=== PATIENT | female | born 2000 | race Caucasian/White ===

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

== ENCOUNTER 2020-01-21 06:09 | Emergency (ER) | payer OTHER, SELFPAY ==
[2020-01-21 06:10] VITALS: BP 90/63; PULSE 150; RESP 20; TEMP 38.8; O2SAT 97; BMI 51.0
[2020-01-21 06:15] VITALS: BP 90/63; PULSE 150; RESP 20; TEMP 38.8; O2SAT 97
--- NOTE | 2020-01-21 06:23 | RAD_ITS ---
STUDY: X-RAY CHEST REASON FOR EXAM: Female, 19 years old. SOB TECHNIQUE: PA and lateral views of the chest. COMPARISON: None. FINDINGS: Small ill-defined density in the posterior lung base overlapping the T10 vertebra on the lateral view is not clearly localized on the frontal image, it may simply be summation artifact or minor subsegmental atelectasis. The lungs are otherwise clear and expanded. There is no demonstrated pleural abnormality. Normal size heart. Normal mediastinum and jacqueline. Normal visualized pulmonary arteries. Normal visualized aortic arch and descending thoracic aorta. Normal visualized thoracic spine. Normal visualized ribs, clavicles, and shoulders. There is no demonstrated abnormality of the visualized soft tissue structures of the upper abdomen. RAD/Chest PA and Lateral IMPRESSION: Summation artifact or minor subsegmental atelectasis in the posterior lung base. Otherwise, normal chest x-ray. Electronically Signed: Justin Barger MD at 7:18 EST , Service support ,
--- NOTE | 2020-01-21 06:24 | ED.VIS.GEN ---
History of Present Illness Chief Complaint: Shortness of Breath Narrative: Patient is a 19-year-old female who presents with shortness of breath. She has been ill since last night. She reports subjective fever, sweats, rigors. She feels short of breath and feels like her throat is tight or swollen. No sore throat. He does have some nasal congestion and rhinorrhea. She also complains of diffuse myalgias and arthralgias. No nausea vomiting or diarrhea. Past Medical History - Allergies and Home Meds Allergies/Adverse Reactions: Allergies No Known Allergies Allergy (Verified 01/21/20 06:13) Primary Care Physician: Care Physician,No Primary [Primary Care Provider] - Past Medical History: - - Diabetes Smoking Status: Never smoker Review of Systems All systems negative except as indicated General: Reports: Chills, Fever, Sweats Eyes: Denies: Visual changes - bilaterally ENT: Reports: - - Congestion. Denies: Bilateral ear pain Cardiovascular: Denies: Chest pain Respiratory: Reports: Dyspnea. Denies: Cough Gastrointestinal: Denies: Abdominal pain, Nausea, Vomiting, Diarrhea Musculoskeletal: Reports: Myalgias, Arthralgias Skin: Denies: Rash Neurological: Denies: Headache Allergy: Denies: Uticaria Physical Exam Vital Signs/Narrative: Vital Signs Temp Pulse Resp BP Pulse Ox 01/21/20 06:15 101.8 F H 150 H 20 H 90/63 97 01/21/20 06:10 101.8 F H 150 H 20 H 90/63 97 Inital Vital Signs reviewed: Yes General: Well nourished Head: Normocephalic Eyes: EOMI ENT: Moist mucous membranes Neck: Supple Cardiovascular: - - Heart is regular tachycardia without murmur Respiratory: No distress, CTA bilaterally Abdomen: Soft, Nontender Extremities: Nontender Skin: Normal color Neurological: Alert Psychological: Normal affect Diagnostic/Tx/Re-eval 01/21/20 06:23 Chest PA and Lateral [RAD] Stat Laboratory Results 01/21/20 01/21/20 01/21/20 06:30 06:30 06:30 WBC 12.4 H RBC 4.78 Hgb 12.4 Hct 38.5 MCV 80.5 L MCH 25.9 L MCHC 32.2 RDW Std Deviation 36.9 RDW Coeff of Bobby 12.6 Plt Count 392 MPV 9.7 Immature Gran % (Auto) 0.500 Neut % (Auto) 85.8 H Lymph % (Auto) 7.8 L [place] % (Auto) 5.5 Eos % (Auto) 0.2 Baso % (Auto) 0.2 Absolute Neuts (auto) 10.6 H Absolute Lymphs (auto) 0.97 Nucleated RBC % 0 Sodium 136 Potassium 4.3 Chloride 105 Carbon Dioxide 24.0 Anion Gap 7 BUN 15 Creatinine 1.00 Estim Creat Clear Calc 77.49 Est GFR (MDRD) Af Amer 91 Est GFR (MDRD) Non-Af 75 BUN/Creatinine Ratio 15.0 Glucose 190 H Lactic Acid 1.6 Calcium 9.7 - Medical Decision Making Patient was treated with IV fluids, Tylenol,. She does feel much better on reevaluation. Her vitals are improved. Her repeat blood pressure is 136 systolic and heart rate is down roughly 110 chest x-ray on my review shows no focal infiltrate or acute process although radiology read is pending. We will have the oncoming physician to follow-up on these studies but my clinical suspicion is that this is related to viral illness such as influenza. I did speak to the patient regarding risks and benefits of Tamiflu. Patient will be reevaluated by the morning physician and as long as he continues to show symptomatic improvement and feels well after her fluid boluses I do believe she can be discharged. ED Disposition - Plan for ED Patient: Disposition: Home or Assisted Living Diagnosis: Influenza Instructions: INFLUENZA (Adult) Prescriptions: Oseltamivir Phosphate [Tamiflu] 75 mg PO BID #10 cap Prescription Printed Referrals: Care Physician,No Primary [Primary Care Provider] -
[2020-01-21] MEDS: 0.9% Normal Saline 1,000 ML 999 ML IV ×2 (06:38→07:42)
[2020-01-21] MEDS: Acetaminophen 500 MG Tablet 1000 MG PO (06:39)
[2020-01-21] MEDS: Ketorolac 30 MG/ML Syringe IV (06:39)
[2020-01-21 06:47] LABS: Absolute Lymphocyte Count 0.97 X10^3/uL (0.83-4.51); Absolute Neutrophil Count 10.6 X10^3/uL (2.0-7.7); Basophil# 0.03 X10^3/uL; Basophil% 0.2 % (0-1); Eosinophil# 0.02 X10^3/uL; Eosinophils% 0.2 % (0-5); Hematocrit 38.5 % (37-47); Hemoglobin 12.4 g/dL (12.0-15.0); Lymphocyte # 0.97 X10^3/ul (4.0); Lymphocyte % 7.8 % (19-41); Mean Corp Hgb Conc 32.2 g/dL (32-36); Mean Corpuscular Hgb 25.9 pg (27.0-32.0); Mean Corpuscular Volume 80.5 fL (81-99); Mean Platelet Vol. 9.7 fl (6.2-12.0); Monocyte# 0.68 X10^3/uL; Monocyte% 5.5 % (0-10); NRBC Flagged by Analyzer 0 % (0-5); Neutrophil # 10.62 X10^3/uL (2.7-7.7); Neutrophil % 85.8 % (47-70); Platelet Count 392 K/mm3 (150-450); RBC Distribution Width CV 12.6 % (11.6-14.6); RBC Distribution Width SD 36.9 fl (35.1-43.9); Red Blood Count 4.78 M/mm3 (4.2-5.4); White Blood Count 12.4 K/mm3 (4.4-11.0)
[2020-01-21 06:58] LABS: Anion Gap 7 (5-15); BUN 15 mg/dL (7-18); Calcium,Total 9.7 mg/dL (8.5-10.1); Chloride 105 mmol/L (98-107); EST Glomerular Filtration Rate 75 mL/min (>60); Est Glom Filt Rate - Afr Amer 91 mL/min (>60); Estimated Creatinine Clearance 77.49 ml/min; Glucose 190 mg/dL (74-106); Potassium 4.3 mmol/L (3.5-5.1); Sodium Level 136 mmol/L (136-145)
[2020-01-21 07:02] LABS: Lactic Acid 1.6 mmol/L (0.4-1.9)
[2020-01-21 07:12] VITALS: BP 136/58; PULSE 120; RESP 16; TEMP 37.6; O2SAT 97
[2020-01-21 08:49] VITALS: BP 135/66; PULSE 114; O2SAT 98
== END 2020-01-21 08:57 | disposition home or self-care (01) ==
PROVIDERS: Emergency Provider Emergency Medicine
DX: J11.1 Influenza due to unidentified influenza virus with other respiratory manifestations (principal); E11.9 Type 2 diabetes mellitus without complications; Z79.84 Long term (current) use of oral hypoglycemic drugs
CPT/HCPCS: 71046; 80048; 83605; 85025; 87804; 96361; 96374; 99284; J7030; A4216